=== PATIENT | male | born 1965 | race American Indian/Alaskan Native ===

== ENCOUNTER 2021-06-22 08:28 | Outpatient (CLI) | payer OTHER ==
[2021-06-22] MEDS ORDERED: ALBUTEROL 2.5 MG/3 ML NEBU IH ONE (09:30)
== END 2021-06-22 08:29 | disposition home or self-care (01) ==
LOC: PF 08:28
PROVIDERS: ATTEND Internal Medicine
DX: J45.909 Unspecified asthma, uncomplicated (principal); I10 Essential (primary) hypertension
CPT/HCPCS: 94060; 94640; 94726; 94729; A9270